=== PATIENT | female | born 1950 | race African-American/Black ===

== ENCOUNTER → 2016-08-24 | Outpatient (CLI) | payer BC ==
[2015-08-17 15:00] VITALS: BP 164/84
[~2016-08-24] MED LIST: AMLO5TAB4 PO; HYDR25TA9 PO; LISI1TAB7 PO; MELO-156 PO; METF500T9 PO; POTA10CA PO
--- NOTE | 2016-08-25 08:46 | KCIC ---
Bilateral digital screening mammograms with CAD: HISTORY COMPARISON Comparison is made to previous studies dated 11/14/2012. FINDINGS Breast density category B. The skin and nipples show no abnormalities. No abnormal lymph nodes are seen in the axilla. The breast parenchyma shows scattered fibroglandular density. There continues to be some asymmetric parenchyma seen bilaterally. There are no dominant masses, suspicious calcifications or architectural distortions. Benign appearing calcifications are present IMPRESSION No evidence of malignancy. Recommend routine annual mammographic screening. This study was interpreted with the benefit of Computerized Aided Detection (CAD). Mammography is not 100% sensitive in detecting breast cancer. Therefore, a self breast exam and a clinical breast exam are very important. A negative mammogram does not negate a clinically suspicious finding and should not result in a delay in biopsying a clinically suspicious abnormality. BI-RADS category 2. Benign. This patient's information has been entered into a reminder system for the patient to be notified with the results of this examination and a target date for her next mammograms. Electronically signed by: Kennedi Becerra MD (Aug 25, 2016 08:44:29)
== END | disposition home or self-care (01) ==
LOC: KCIC MAMMO 15:45
PROVIDERS: ATTEND Family Medicine
DX: Z12.31 Encounter for screening mammogram for malignant neoplasm of breast (principal)
CPT/HCPCS: 77052; G0202; 77067

== ENCOUNTER → 2017-08-24 | Outpatient (CLI) | payer BC | END | disposition home or self-care (01) | LOC: KCIC MAMMO 14:05 | DX: Z12.31 Encounter for screening mammogram for malignant neoplasm of breast (principal) | CPT/HCPCS: 77067 ==

== ENCOUNTER → 2018-12-04 | Outpatient (CLI) | payer BC ==
[2015-08-17 15:00] VITALS: BP 164/84
[~2018-12-04] MED LIST changes: +HYDR-2145 PO; -HYDR25TA9 PO; -MELO-156 PO; +MELO7.5T29 PO; -POTA10CA PO; +POTA10TA12 PO
--- NOTE | 2018-12-04 17:17 | KCIC ---
Bilateral digital screening mammograms with 3-D tomosynthesis: Reason for examination: Routine screening. Comparison is made to previous studies dated 08/24/2017 and 08/24/2016. Bilateral mammograms in CC and oblique projections were obtained with 2-D imaging and 3-D tomosynthesis imaging on a Siemens Inspiration unit and reviewed on the workstation. Interpretation was made with the benefit of CAD. The skin and nipples show no abnormalities. No abnormal axillary lymph nodes are seen. The breast parenchyma is heterogeneously dense. (Breast density: Category C.) There are no dominant masses, suspicious calcifications or architectural distortion. Benign calcifications are present. Impression: No evidence of malignancy. Recommend routine screening. Your patient's mammogram demonstrates that she has dense breast tissue (breast density category C or D), which could hide abnormalities, and if she has other risk factors for breast cancer that have been identified, she might benefit from supplemental screening tests that may be suggested by you as her ordering physician. Dense breast tissue, in and of itself, is a relatively common condition. Therefore, this information is not provided to cause undue concern, but rather to raise your awareness and to promote discussion with your patient regarding the presence of other risk factors, in addition to dense breast tissue. Your patient's mammography results will be sent to her. BI-RAD Category 2: Benign. "Our facility is accredited by the [employer] Mammography Program." This patient's information has been entered into a reminder system for the patient to be notified with the results of her examination and a target date for the next mammogram. Electronically signed by: Radha Becerra MD (12/04/2018 5:14 PM) [id number]
== END | disposition home or self-care (01) ==
LOC: KCIC MAMMO 14:28
PROVIDERS: ATTEND Family Medicine
DX: Z12.31 Encounter for screening mammogram for malignant neoplasm of breast (principal)
CPT/HCPCS: 77063; 77067

== ENCOUNTER → 2019-02-22 | Day surgery (SDC) | payer BC ==
[~2019-02-22] MED LIST changes: +IV RINGERS,LACTATED 1000ML 1,000 ML IV SCH; +LIDOCAINE 2% PF 5 ML VIAL. ONE; +LISI2.5T PO; +MELO15TA23 PO
[2019-02-22 13:33] VITALS: BP 147/94
--- NOTE | 2019-02-22 14:05 | HP ---
ADMIT DATE: 02/22/2019 REFERRING PHYSICIAN: Dr. Aba Goel. REASON: Colorectal screening. HISTORY OF PRESENT ILLNESS: This is a 68-year-old -Mexican female whose past medical history is significant for hypertension, osteoarthrosis, is seen for interval colonoscopy, last was done approximately 10 years ago, which was unrevealing for polyps or cancers at that time. Bowel habits have been regular without diarrhea or constipation. There has been no melena or hematochezia. Family history likewise unrevealing for colon cancer, colon polyps. She is without additional complaints. PAST MEDICAL HISTORY: Osteoarthrosis, hypertension. ALLERGIES: None. MEDICATIONS: Include potassium, amlodipine, meloxicam and lisinopril. SOCIAL HISTORY: She is nonsmoker, nondrinker at this time. FAMILY HISTORY: Otherwise, noncontributory. REVIEW OF SYSTEMS: Per records. PAST SURGICAL HISTORY: Status post cholecystectomy and fibroid resection. PHYSICAL EXAMINATION: GENERAL: Reveals a well-nourished, well-developed -Mexican female who is alert, cooperative, in no acute distress. VITAL SIGNS: Temperature 97.4, pulse 78, respirations 20. HEENT: Normocephalic and atraumatic head. Pupils and extraocular movements not tested. Sclerae anicteric. NECK: Supple. LUNGS: Clear. CARDIOVASCULAR: Reveals S1, S2 without S3, S4 or appreciable murmur. ABDOMEN: Reveals soft abdomen, normal bowel sounds without appreciable hepatosplenomegaly. EXTREMITIES: Reveals no cyanosis, clubbing or edema. IMPRESSION: Colorectal screening is warranted at this time. Risks and benefits of procedure including risk of hemorrhage and perforation during the operation have been discussed, the patient is willing to proceed. I would like to thank Dr. Goel for allowing us to consult and participate in the patient's care. MUSHTAQ HERRON MD DR: ROSSY/renetta JOB#: [id number] / [id number] ABA Medrano MD
== END ==
LOC: ENDOS 11:36
PROVIDERS: ATTEND Internal Medicine Gastroenterology
DX: Z12.11 Encounter for screening for malignant neoplasm of colon (principal); K57.30 Diverticulosis of large intestine without perforation or abscess without bleeding; K64.0 First degree hemorrhoids; I10 Essential (primary) hypertension; Z86.010 Personal history of colon polyps; Z87.39 Personal history of other diseases of the musculoskeletal system and connective tissue; Z90.49 Acquired absence of other specified parts of digestive tract; Z98.890 Other specified postprocedural states
CPT/HCPCS: 45378; J2001

== ENCOUNTER → 2019-12-19 | Outpatient (CLI) | payer BC ==
[2019-02-22 13:33] VITALS: BP 147/94
[~2019-12-19] MED LIST changes: +BUPIVACAINE MPF 0.25% 10 ML VIAL. IJ ONE; +CONTRAST GIVEN. MC PRN; +IOHEXOL 300 MG/ML 50 ML VIAL. IJ ONE; -IV RINGERS,LACTATED 1000ML 1,000 ML IV SCH; -LIDOCAINE 2% PF 5 ML VIAL. ONE; +LISI1TAB20 PO; -LISI1TAB7 PO; +METF500T11 PO; -METF500T9 PO; +methylPREDNISolone ACETATE 40 MG/ML VIAL. INJ ONE
--- NOTE | 2019-12-19 15:34 | RAD ---
Fluoroscopically guided right hip injection. INDICATION: Right hip pain. COMPARISON: None. Technique and Findings: Informed consent was obtained and an appropriate procedural pause observed. Using standard sterile technique, fluoroscopic imaging guidance and local anesthesia, a cocktail containing 5 mg in 2 ml of bupivacaine, admixed with 40 mg of Depo-Medrol was injected into the right hip joint following confirmation of appropriate needle tip positioning with 2 mL of Omnipaque 300. A total of 10 mL of 1 percent lidocaine was utilized for initial anesthesia of the skin surface and in the deeper soft tissues during needle positioning. Five images were acquired for procedural documentation using a total of 1.4 minutes of fluoroscopy time. Following medication delivery to the right hip joint, the needle was removed, puncture site dressed and postprocedure instructions were reviewed. Patient tolerated the procedure without incident. IMPRESSION: Successful right hip injection with Depo-Medrol and bupivacaine as described. No apparent complications. Electronically signed by: Lyudmila Baldwin MD (12/19/2019 3:31 PM) [id number]
== END | disposition home or self-care (01) ==
LOC: RAD 12:37
PROVIDERS: ATTEND Physical Medicine & Rehabilitation
DX: M25.551 Pain in right hip (principal); I10 Essential (primary) hypertension; M19.90 Unspecified osteoarthritis, unspecified site; Z79.82 Long term (current) use of aspirin; Z98.890 Other specified postprocedural states; Z79.899 Other long term (current) drug therapy; Z98.51 Tubal ligation status; Z90.49 Acquired absence of other specified parts of digestive tract; Z82.49 Family history of ischemic heart disease and other diseases of the circulatory system
CPT/HCPCS: 20610; 77002; J1030; J3490; Q9967

== ENCOUNTER 2019-12-27 21:19 | Emergency (ER) | payer BC ==
[~2019-12-27] VITALS: Ht 154.9 cm; Wt 95.8 kg
[~2019-12-27 21:19] MED LIST changes: -BUPIVACAINE MPF 0.25% 10 ML VIAL. IJ ONE; -CONTRAST GIVEN. MC PRN; -IOHEXOL 300 MG/ML 50 ML VIAL. IJ ONE; -methylPREDNISolone ACETATE 40 MG/ML VIAL. INJ ONE
[2019-12-27 21:34] VITALS: BP 158/81
--- NOTE | 2019-12-27 21:43 | PHYS DOC ---
Past Medical History Past Medical History: Hypertension Past Surgical History: Cholecystectomy Smoking Status: Never Smoker Alcohol Use: Rarely Drug Use: None General Adult EDM: Chief Complaint: FOREIGNBODY EAR HPI: HPI: 69 year old female presents with the chief complaint of fb sensation in right ear. States prior to arrival bug when into her right ear. States she flushed out with fluids. Patient with no complaints of pain. Ear examined-- no FB identified. Review of Systems: Review of Systems: Constitutional: Denies fever or chills. [] Eyes: Denies change in visual acuity. [] HENT: Denies nasal congestion or sore throat. [FB sensation] Respiratory: Denies cough or shortness of breath. [] Cardiovascular: Denies chest pain or edema. [] GI: Denies abdominal pain, nausea, vomiting, bloody stools or diarrhea. [] : Denies dysuria. [] Musculoskeletal: Denies back pain or joint pain. [] Integument: Denies rash. [] Neurologic: Denies headache, focal weakness or sensory changes. [] Endocrine: Denies polyuria or polydipsia. [] Lymphatic: Denies swollen glands. [] Psychiatric: Denies depression or anxiety. [] Heart Score: Risk Factors: Risk Factors: DM, Current or recent (<one month) smoker, HTN, HLP, family history of CAD, obesity. Risk Scores: Score 0 - 3: 2.5% MACE over next 6 weeks - Discharge Home Score 4 - 6: 20.3% MACE over next 6 weeks - Admit for Clinical Observation Score 7 - 10: 72.7% MACE over next 6 weeks - Early Invasive Strategies Allergies: Allergies: Allergies Coded Allergies Type Severity Reaction Last Updated Verified No Known Drug Allergies 02/22/19 No Physical Exam: PE: Constitutional: Well developed, well nourished, no acute distress, non-toxic appearance. [] HENT: Normocephalic, atraumatic, bilateral external ears normal, oropharynx moist, no oral exudates, nose normal. [] Eyes: PERRLA, EOMI, conjunctiva normal, no discharge. [] Neck: Normal range of motion, no tenderness, supple, no stridor. [] Cardiovascular:Heart rate regular rhythm, no murmur [] Lungs & Thorax: Bilateral breath sounds clear to auscultation [] Abdomen: Bowel sounds normal, soft, no tenderness, no masses, no pulsatile masses. [] Skin: Warm, dry, no erythema, no rash. [] Back: No tenderness, no CVA tenderness. [] Extremities: No tenderness, no cyanosis, no clubbing, ROM intact, no edema. [] Neurologic: Alert and oriented X 3, normal motor function, normal sensory fun ction, no focal deficits noted. [] Psychologic: Affect normal, judgement normal, mood normal. [] Ear- no tb identified, tm intact Current Patient Data: Vital Signs: Vital Signs Date Time Temp Pulse Resp B/P (MAP) Pulse Ox O2 Delivery O2 Flow Rate FiO2 12/27/19 21:34 98.4 76 18 158/81 (106) 96 Room Air 98.4 EKG: EKG: [] Radiology/Procedures: Radiology/Procedures: [] Course & Med Decision Making: Course & Med Decision Making Pertinent Labs and Imaging studies reviewed. (See chart for details) [] Dragon Disclaimer: Jose Disclaimer: This electronic medical record was generated, in whole or in part, using a voice recognition dictation system. Departure Departure Impression: Primary Impression: Feared condition not demonstrated Disposition: HOME/RESIDENCE PRIOR TO ADM Condition: STABLE Patient Instructions: Foreign Body CHANDRAKANT CRAIG I DO December 27, 2019 21:43
== END 2019-12-27 21:54 | disposition home or self-care (01) ==
LOC: ER 21:19
DX: Z71.1 Person with feared health complaint in whom no diagnosis is made (principal); I10 Essential (primary) hypertension
CPT/HCPCS: 99281

== ENCOUNTER → 2020-04-03 | Outpatient (CLI) | payer BC ==
[~2020-04-03] MED LIST changes: +METF-658 PO; -METF500T11 PO
--- NOTE | 2020-04-03 18:33 | KCIC ---
Bilateral digital screening mammograms: Reason for examination: Routine screening. Comparison is made to previous studies dated back to 11/14/2012. Interpretation was made with the benefit of CAD. The skin and nipples show no abnormalities. No abnormal axillary lymph nodes are seen. The breast parenchyma is heterogeneously dense. (Breast density: Category C) There are nodular parenchymal asymmetries which are stable. There are no new dominant masses, suspicious calcifications or architectural distortion. Scattered benign calcifications are again seen. Impression: No evidence of malignancy. Recommend routine screening. Your patient's mammogram demonstrates that she has dense breast tissue (breast density category C or D), which could hide abnormalities, and if she has other risk factors for breast cancer that have been identified, she might benefit from supplemental screening tests that may be suggested by you as her ordering physician. Dense breast tissue, in and of itself, is a relatively common condition. Therefore, this information is not provided to cause undue concern, but rather to raise your awareness and to promote discussion with your patient regarding the presence of other risk factors, in addition to dense breast tissue. Your patient's mammography results will be sent to her. BI-RADS Category 2: Benign. "Our facility is accredited by the [employer] Mammography Program." This patient's information has been entered into a reminder system for the patient to be notified with the results of her examination and a target date for the next mammogram. Electronically signed by: Radha Becerra MD (04/03/2020 6:30 PM) [id number]
== END | disposition home or self-care (01) ==
LOC: KCIC 15:49
PROVIDERS: ATTEND Family Medicine
DX: Z12.31 Encounter for screening mammogram for malignant neoplasm of breast (principal); N64.89 Other specified disorders of breast
CPT/HCPCS: 77067

== ENCOUNTER → 2020-11-11 | Outpatient (CLI) | payer BC ==
--- NOTE | 2020-11-11 16:18 | KCIC ---
XR ABDOMEN 2V 11/11/2020 10:40 AM INDICATION: Generalized abdominal pain, pelvic pain COMPARISON: None available. TECHNIQUE: 2 supine and single upright view of the abdomen provided. FINDINGS/ IMPRESSION: 1. There is no free intraperitoneal air. No dilated loops of small or large bowel. Nonobstructed kim l gas pattern. 2. Calcified uterine fibroids are identified within the pelvis measuring up to 5.0 cm. 3. Mild degenerative changes of lumbar spine are present. 4. Right total hip arthroplasty changes are identified without evidence for hardware failure. Mild to moderate left hip osteoporosis. 5. No suspicious gender urinary calculations are identified. Atherosclerotic desiccation of the abdom inal aorta which appears tortuous. Electronically signed by: Debbi Wagner MD (11/11/2020 4:16 PM) [id number]
== END ==
LOC: KCIC 10:31
PROVIDERS: ATTEND Family Medicine
DX: R10.84 Generalized abdominal pain (principal); R10.2 Pelvic and perineal pain; M47.816 Spondylosis without myelopathy or radiculopathy, lumbar region; M16.12 Unilateral primary osteoarthritis, left hip; Z96.641 Presence of right artificial hip joint
CPT/HCPCS: 74021

== ENCOUNTER → 2020-12-24 | Outpatient (CLI) | payer BC ==
--- NOTE | 2020-12-24 15:53 | KCIC ---
Transabdominal and transvaginal sonography of the pelvis Clinical indications: Uterine leiomyoma. Transabdominal sonography: The urinary bladder is not distended. Uterus and ovaries are not well visu alized. Therefore, transvaginal sonography will be performed. Transvaginal sonography: The uterus is anteverted. The longitudinal and AP and transverse dimensions of the uterus are 7.2 cm and 2.6 cm and 4.5 cm respectively. Endometrial canal is not abnormally thic kened measuring 4 mm in thickness. Echogenic calcification is seen involving the uterus. The 2 promin ent calcified uterine fibroids with popcorn calcification seen on November 11, 2020 x-ray are not well d elineated by sonography due to the dense calcification. No free fluid is seen within the cul-de-sac. No adnexal mass is seen. Neither ovary is visualized. IMPRESSION: 2 prominent calcified uterine fibroids seen on an x-ray study of November 11, 2020 are not w ell seen by sonography due to the shadowing from calcification. Endometrial canal is not abnormally t hickened. Neither ovary is visualized. Electronically signed by: Eiler Gordon MD (12/24/2020 3:51 PM) [id number]
== END ==
LOC: KCIC US 14:57
PROVIDERS: ATTEND Family Medicine
DX: D25.9 Leiomyoma of uterus, unspecified (principal)
CPT/HCPCS: 76856

== ENCOUNTER → 2021-02-02 | Outpatient (CLI) | payer BC ==
[~2021-02-02] MED LIST changes: +GADOTERATE 7.5 MMOL/15ML VIAL. IVP ONE; +METF500T16 PO
--- NOTE | 2021-02-02 14:17 | KCIC ---
Examination: Pelvic MRI without and with IV contrast INDICATION: Pelvic masses. Further evaluation. TECHNIQUE: Multiplanar multisequence MRI of the pelvis performed without and with IV contrast. COMPARISON: Ultrasound dated 12/24/2020 and radiograph dated the 3020. FINDINGS: The study is severely limited by streaking artifact from right hip prosthesis. UTERUS: The uterus is anteverted, anteflexed measures 7.7 x 3.5 x 4.8 cm. There are multiple variable size da rk T2 nonenhancing masses throughout the uterus. For example, exophytic mass from the uterine fundus measures 4.0 cm and exophytic mass from the anterior uterine body measures up to 4.3 cm. These masses correspond to calcified masses seen on previous radiograph. Endometrium is distorted measures approx imately 4 mm in thickness. Unremarkable appearance of the cervix and vagina. OVARIES: Not visualized with certainty. OTHER: Unremarkable urinary bladder. Sigmoid diverticulosis. No lymphadenopathy in the pelvis by size criter ia. No pelvic free fluid. No suspicious osseous lesion. Degenerative changes in the lower lumbar spin e. Grade 1 anterolisthesis of L4 over L5. IMPRESSION: Severely limited exam due to streaking artifact from right hip prosthesis, 1. Calcified and noncalcified intramural and subserosal uterine fibroids measures up to 4.3 cm. 2. Other chronic/incidental findings, as described above. Electronically signed by: Jesus Castro MD (02/02/2021 2:14 PM) [facility]
== END ==
LOC: KCIC MRI 10:43
PROVIDERS: ATTEND Obstetrics & Gynecology
DX: D25.2 Subserosal leiomyoma of uterus (principal); D25.1 Intramural leiomyoma of uterus; K57.30 Diverticulosis of large intestine without perforation or abscess without bleeding; R19.00 Intra-abdominal and pelvic swelling, mass and lump, unspecified site
CPT/HCPCS: 72197; 82565; A9575